=== PATIENT | female | born 1985 | race Caucasian/White ===

== ENCOUNTER 2018-03-10 07:47 | Inpatient (IN) | payer MEDICAID ==
[2018-03-10] MEDS: LACTATED RINGER'S 1,000 ML IV ×2 (08:54→09:04)
[2018-03-10] MEDS: AMPICILLIN 2 GM/NS (PMX) 100 ML IV (08:55)
[2018-03-10 08:59] LABS: ADD MAN DIFF? NO
[2018-03-10] MEDS ORDERED: LIDOCAINE 1% (MPF) 30 ML INJ INJ (09:00)
[2018-03-10] MEDS ORDERED: OXYTOCIN 30 UNITS/LR 500 ML IV ×2 (09:00→15:30)
[2018-03-10] MEDS ORDERED: CARBOPROST 250 MCG INJ IM ×2 (09:00→15:30)
[2018-03-10] MEDS ORDERED: METHYLERGONOVINE 0.2 MG INJ IM ×2 (09:00→15:30)
[2018-03-10] MEDS ORDERED: MISOPROSTOL 200 MCG TAB PR ×2 (09:00→15:30)
[2018-03-10 09:10] LABS: BASOPHILS % 0.4 % (0.0-2.0); EOSINOPHILS # 0.1 10^3/ul (0.0-0.5); EOSINOPHILS % 0.5 % (0.0-7.0); HEMATOCRIT 41.2 % (37.0-47.0); HEMOGLOBIN 13.6 g/dl (12.0-16.0); LYMPHOCYTES # 1.5 10^3/ul (0.8-2.9); LYMPHOCYTES % 14.4 % (15.0-51.0); MEAN CORPUSCULAR HEMOGLOBIN 29.4 pg (29.0-33.0); MEAN PLATELET VOLUME 10.4 fl (7.4-10.4); MONOCYTE # 0.5 10^3/ul (0.3-0.9); MONOCYTES % 4.9 % (0.0-11.0); NEUTROPHIL # 8.3 10^3/ul (1.6-7.5); NEUTROPHILS % 78.4 % (39.0-77.0); PLATELET COUNT 170 10^3/UL (140-415); RED BLOOD COUNT 4.63 10^6/ul (4.20-5.40); RED CELL DISTRIBUTION WIDTH 14.3 % (11.5-14.5)
[2018-03-10 09:10] LABS: WHITE BLOOD COUNT 10.6 10^3/ul (4.8-10.8)
[2018-03-10 09:34] LABS: INR 0.89; PROTIME 12.1 Sec (11.9-14.9); PT RATIO 0.9
[2018-03-10 09:35] LABS: PARTIAL THROMBOPLASTIN TIME 25.7 Sec (23.0-35.0)
[2018-03-10] MEDS ORDERED: NALOXONE (0.4 MG/ML) INJ IV (10:00)
[2018-03-10] MEDS ORDERED: FENTAnyl 2MCG/ML-ROPIV 0.2% 100 ML BAG EPI (10:00)
[2018-03-10] MEDS ORDERED: DIPHENHYDRAMINE 50 MG INJ IV (10:00)
[2018-03-10] MEDS ORDERED: ONDANSETRON 4 MG INJ IV (10:00)
[2018-03-10] MEDS ORDERED: LIDOCAINE 1% (MPF) 30 ML INJ (10:27)
[2018-03-10] MEDS ORDERED: MINERAL OIL LIGHT 10 ML VIAL TOP (10:30)
[2018-03-10] MEDS: OXYTOCIN 30 UNITS/LR 500 ML IV ×2 (12:22→12:50)
[2018-03-10] MEDS: ACETAMINOPHEN 1000MG/100ML IV 100 ML IVPB (12:27)
[2018-03-10] MEDS ORDERED: AMPICILLIN 1 GM/NS (PMX) 50 ML IV (12:30)
[2018-03-10 13:29] LABS: HEPATITIS B SURFACE ANTIGEN NEGATIVE (NEGATIVE)
[2018-03-10] MEDS: IBUPROFEN 600 MG TAB PO ×2 (13:47→17:20)
[2018-03-10 14:53] LABS: RAPID PLASMA REAGIN NONREACTIVE (NR)
[2018-03-10] MEDS: LACTATED RINGER'S 1,000 ML IV* ×2 (15:21→21:24)
[2018-03-10] MEDS ORDERED: DIBUCAINE 1% 30 GM OINT TOP (15:30)
[2018-03-10] MEDS ORDERED: ZOLPIDEM 5 MG TAB PO (15:30)
[2018-03-10] MEDS: LANOLIN HPA 1 PKT TOP (15:46)
[2018-03-10] MEDS: BENZOCAINE 20% 56 ML SPRAY TOP (15:47)
[2018-03-10] MEDS: WITCH HAZEL/GLYCERIN PAD PR (15:47)
[2018-03-10] MEDS: ACETAMINOPHEN 325 MG TAB PO (17:20)
[2018-03-11] MEDS: SENNA/DOCUSATE NA (8.6MG/50MG) TAB PO ×3 (00:26→21:00)
[2018-03-11] MEDS: IBUPROFEN 600 MG TAB PO ×5 (00:26→23:38)
[2018-03-11] MEDS: MAGNESIUM HYDROXIDE 30ML CUP PO ×3 (00:26→21:00)
[2018-03-11] MEDS: ACETAMINOPHEN 325 MG TAB PO ×4 (01:00→17:51)
[2018-03-11] MEDS: LACTATED RINGER'S 1,000 ML IV* ×3 (07:21→23:21)
[2018-03-11 08:49] LABS: ADD MAN DIFF? NO
[2018-03-11 09:02] LABS: BASOPHILS % 0.4 % (0.0-2.0); EOSINOPHILS # 0.1 10^3/ul (0.0-0.5); HEMOGLOBIN 11.9 g/dl (12.0-16.0); LYMPHOCYTES # 1.7 10^3/ul (0.8-2.9); MEAN CORPUSCULAR HEMOGLOBIN 29.7 pg (29.0-33.0); MEAN CORPUSCULAR HGB CONC 33.1 g/dl (32.0-37.0); MEAN CORPUSCULAR VOLUME 89.8 fl (82.0-101.0); MEAN PLATELET VOLUME 10.7 fl (7.4-10.4); MONOCYTE # 0.5 10^3/ul (0.3-0.9); MONOCYTES % 5.2 % (0.0-11.0); NEUTROPHIL # 7.5 10^3/ul (1.6-7.5); PLATELET COUNT 160 10^3/UL (140-415); RED BLOOD COUNT 4.01 10^6/ul (4.20-5.40); RED CELL DISTRIBUTION WIDTH 14.5 % (11.5-14.5)
[2018-03-12] MEDS: ACETAMINOPHEN 325 MG TAB PO ×3 (06:29→12:00)
[2018-03-12] MEDS: IBUPROFEN 600 MG TAB PO ×2 (06:29→11:50)
[2018-03-12] MEDS: MAGNESIUM HYDROXIDE 30ML CUP PO (09:00)
[2018-03-12] MEDS: SENNA/DOCUSATE NA (8.6MG/50MG) TAB PO (09:00)
[2018-03-12] MEDS: DIPHTH/TET/ACEL PERTUSS (ADULT) 0.5 ML VIAL IM* (09:00)
[2018-03-12] MEDS: MEASLES,MUMPS,RUBELLA VACCINE INJ SC* (09:00)
[2018-03-12] MEDS: VARICELLA VACCINE LIVE/PF 1,350 UNIT/0.5 ML ML SC* (09:00)
[2018-03-12] MEDS: LANOLIN HPA 1 PKT TOP (09:52)
== END 2018-03-12 14:15 | disposition home or self-care (01) | DRG 833 ==
LOC: OBT 07:47 → L-D 07:47 → OBT 08:05 → L-D 08:05 → PP1 14:30
PROVIDERS: Obstetrics & Gynecology
PROC: 10D07Z6 Extraction of Products of Conception, Vacuum, Via Natural or Artificial Opening (ICD-10-PCS; principal; 2018-03-10)
DX: O66.5 Attempted application of vacuum extractor and forceps (principal); Z3A.38 38 weeks gestation of pregnancy
CPT/HCPCS: 85025; 85610; 85730; 86592; 86850; 86900; 86901; 87340; 90716